=== PATIENT | female | born 1970 | race Hispanic/Latino ===

== ENCOUNTER 2018-05-20 05:32 | Day surgery (SDC) | payer OTHER ==
[~2018-05-20] VITALS: Ht 160 cm; Wt 76.2 kg
[2018-05-20] VITALS (7 sets, daily range): BP systolic 102–134; BP diastolic 47–79
[~2018-05-20 05:32] MED LIST: IBUP-2353 PO
[2018-05-20] MEDS ORDERED: SODIUM CHLORIDE 0.9% 1000ML 1,000 ML IV ONE (05:54)
[2018-05-20] MEDS ORDERED: PROPOFOL 10 MG/ML 20ML VIAL IV ONE (07:56)
[2018-05-20] MEDS ORDERED: GLYCOPYRROLATE 0.2 MG/ML 5 ML VIAL ONE (07:57)
== END 2018-05-20 09:31 | disposition home or self-care (01) ==
LOC: DAH 05:32 → ENDO 05:32
PROVIDERS: ATTEND Internal Medicine
DX: K63.5 Polyp of colon (principal); K57.30 Diverticulosis of large intestine without perforation or abscess without bleeding; R19.4 Change in bowel habit; K62.89 Other specified diseases of anus and rectum; L43.9 Lichen planus, unspecified; D89.89 Other specified disorders involving the immune mechanism, not elsewhere classified; K29.70 Gastritis, unspecified, without bleeding; Z68.30 Body mass index [BMI] 30.0-30.9, adult; Z79.899 Other long term (current) drug therapy; Z98.890 Other specified postprocedural states; Z90.710 Acquired absence of both cervix and uterus
CPT/HCPCS: 45380; A4606; J2704; J3490; J7030